=== PATIENT | female | born 1955 | race Caucasian/White ===

== ENCOUNTER 2019-04-10 10:16 | Outpatient (RCR) | payer OTHER, SELFPAY ==
--- NOTE | 2019-04-10 11:59 | PTOPEVAL ---
INITIAL PHYSICAL THERAPY EVALUATION and PLAN OF CARE Thank you for referring Martina to [facility]. Please review, sign, date and return this plan of care CHELALuis Carlos Mack will be seen in PT 1x/wk x 6 weeks. I agree with and certify that the following plan of care is medically necessary. Referring Physician Date Admitting Provider: Attending Provider: PHYSICIAN NOT ON STAFF Referring Provider: *PT Outpatient Evaluation Start: 04/10/19 10:34 Freq: Status: Active Protocol: Document 04/10/19 10:25 MAYITO (Rec: 04/10/19 11:54 MAYITO [email or web address]) Therapy Assessment Status Assessment Status Assessment Status Evaluation Outpatient Past Medical History Neurological History Hx Neurological Disorders No Significant History Cardiovascular History Hx Cardiac Disorders No Significant History Respiratory History Hx Asthma Yes: allergy related Gastrointestinal History Hx Appendectomy Yes Hx Bowel Surgery Yes: abdominal wall reconstruction 2019 Hx Cholecystectomy Yes Hx Gastric Bypass Surgery Yes: 08/15/2017 Hx Hernia Yes Genitourinary History Hx Nephrectomy Yes: L kidney - late 30's - kidney CA Hx Other Genitourinary Disorders Yes: OAB, urge urinary incontinence Musculoskeletal History Hx Back Pain Yes Hx Degenerative Disk Disease Yes Hx Other Musculoskeletal Disorders Yes: neck pain,recent injections for hip bursitis Endocrine History Hx Hypothyroidism Yes HEENT History Hx HEENT Disorders No Significant History Reproductive History Hx Reproductive Disorders No Significant History Other History Hx Cancer Yes: kidney CA - when in her 30's Evaluation Information Problem Diagnosis OAB, urge urinary incontinence Onset years ago, worsened last 5-7 yrs Subjective Information Before medication - unable to Query Text:As Reported By Patient/ delay urination at all. Since Family medication - now can delay urination Before - if waited - just started losing urine - unable to control at all. Will also have difficulty controlling bowels - decreased control - Stool is more liquid in nature due to gastric bypass Spastic colon - especially when nervous. Diagnostic Tests Other Tests F
--- NOTE | 2019-04-24 08:53 | PCPTNOTE ---
Patient called & cancelled scheduled appointment this date due to illness. [ ]
--- NOTE | 2019-05-03 14:19 | PCPTNOTE ---
Patient called & cancelled scheduled appointment this date due to car problems.[ ]
--- NOTE | 2019-05-08 06:58 | PCPTNOTE ---
Patient called & cancelled scheduled appointment this date due to car troubles.[ ]
--- NOTE | 2019-05-23 08:19 | PCPTNOTE ---
PHYSICAL THERAPY DISCHARGE NOTE Admitting Provider: Attending Provider: PHYSICIAN NOT ON STAFF Patient:Martina Mcneil Date of :1955 Martina has not returned for any further treatments since 04/10/2019, which was her initial visit. She was provided with a HEP and urge incontinence education. She will be discharged from physical therapy at this time. Thank you for referring Martina to [facility]. Please review, sign, date and return this discharge summary CHELA. I have been updated about Martina's current status and I agree with discharge from the above service at this time. Referring Physician Date
== END 2019-05-24 09:43 | disposition home or self-care (01) ==
LOC: ANHPT 10:16
DX: N32.81 Overactive bladder (principal); N39.41 Urge incontinence
CPT/HCPCS: 97161

== ENCOUNTER 2025-02-12 14:30 | Outpatient (RCR) | payer MEDICARE, MEDICAID, SELFPAY ==
--- NOTE | 2024-12-14 14:28 | OPREHPOC ---
Outpatient Therapy Plan of Care This is a Multidisciplinary Plan of Care that may contain components documented by all disciplines (PT, OT, and ST.) PT Problem 1 PT Problem #1 Knowledge Deficit PT Goal 1 Goal / Goal Update *independent with HEP Target Visit 10 PT Problem 2 PT Problem #2 Pain PT Goal 1 Goal / Goal Update 1* pt report pain rating of 7/10 at worst 2* pt report with sleeping, awaken every 3 hours due to pain 3* pt report able to tolerate sitting 20 minutes Target Visit 10 PT Problem 3 PT Problem #3 Impaired Flexibility PT Goal 1 Goal / Goal Update increase cervical ROM to improve ability to drive and self care 1* rotation R 60' 2* rotation L 60' pt perform 3 reps without an increase in pain: 3* cervical rotation R 4* cervical rotation L 5* R shoulder flexion 6* R shoulder IR Target Visit 10 PT Problem 4 PT Problem #4 Impaired Strength PT Goal 1 Goal / Goal Update increase cervical thoracic strength, to improve posture and positioning of spine: gross strength of 4/5 Target Visit 10
--- NOTE | 2024-12-14 14:28 | PTOPEVAL1 ---
Assessment and note entered by Marti Veloz, PT Evaluation Information Assessment Status Evaluation ICD-10 Condition Codes (PT) Radiculopathy, thoracolumbar region M54.15,Pain in left shoulder M25.512 Onset about 1 year Subjective Information gradual increase in neck, R shoulder and R upper back back; no imaging done; history of fall with R arm fracture- no treatment for, discovered too late- unable to straighten her elbow, and issues with cervical and thoracic disc R hand dominant pain with sitting is limiting her outings with friend and family activity level: active, artist/draws; light kitchen tasks and self care, otherwise, does all home tasks Reported Pain Level Pain Score Self Report Additional Pain Score Comments pain range in the past week 2-10+/10; aching, sharp; R cervical- thoracic to R shoulder and upper humerus; starting to have some pain in L side too increase pain: sitting 10-15 minutes; walking 10- 15 minutes decrease pain: change position, lie down, arthritis tylenol, is not using heat or ice, instruct on PRN use 10- 15 minutes; report with sleeping, awaken every 2 hours due to pain and change position Assessment PT Clinical Summary Shikha has the diagnosis of R shoulder and thoracic pain. She reports gradual increase in pain and chronic issues with neck, back and shoulder pain. Back index self rating of 62% limitation in activity level. Pain is increased with sitting, walking, driving; sleep is disrupted and does all home tasks. She is R hand dominant and does drawing and art work. Medical history includes: lung cancer, kidney cancer, chronic pain; is currently having work up for increase BP issues with standing. With the evaluation: poor standing posture of neck, shoulder and trunk; pain over R and L cervical, R thoracic, R shoulder to upper humerus/ biceps, with tenderness and spasms. Pain is increased with cervical rotation to R & L, flexion ; all motions of R shoulder. ROM of neck is decreased with rotation and R & L shoulder active ranges are WNL. Skilled PT services are indicated for modalities to decrease pain, therapeutic exercises to increase cervical ROM, and increase strength of cervical/thoracic musculature, to improve posture and positioning, with education for HEP and posture/body mechanics. Plan of Care Interventions Hot Pack/Cold Pack,Manual Therapy,Mechanical Traction,Neuro Re-education,Patient/Caregiver Education,Therapeutic Activities,Therapeutic Exercise,Other Other Interventions taping PT Services Indicated Yes Treatment Frequency and 1-2x/wk for 10 visits Duration These treatments will address the objective and functional deficits as defined above. The patient will be advanced safely and appropriately in order for the patient to progress towards his/her prior level of function. Additional exercises will be introduced and as well as a comprehensive home exercise program upon discharge, if needed, ?to ensure carryover of functional gains achieved in the clinic. This treatment plan has been reviewed and agreement upon by the patient.
--- NOTE | 2024-12-27 08:22 | PCPTNOTE ---
Addendum for 12-17-24 visit. S: Patient reports 4/10 pain on ascending pain scale. Pt reports she has not done HEP everyday. O: Review of HEP: Cervical rotations, lateral bending, flexion extension for 10 x 5 sec holds ea direction UT Stretches 3 x 15 sec shoulder shrugs x 15 scap squeezes x 10 for 5 sec holds Chin tucks x 10 for 5 sec holds posterior shoulder rolls x 15 Pt educated on shoulder and cervical anatomy and relation to pain. Pt also educated on pain relieving measures for home. Manual therapy: STM to UT and levator with gentle pressure and bilateral UT, levator scapulae and rhomboids and cervical ROM A: Pt tolerated STM fair today, frequent feedback regarding pressure. Pt needed cueing for posture and mechanics for chin tucks and alignment for cervical ROM. P: Cont to progress per pt tolerance. Focus on decreasing pain and improving pain free movement. 1 unit Therapeutic Activity for 20 min 1 unit Therapeutic Exercises for 20 min 1 unit Manual for 10 min
--- NOTE | 2025-02-12 15:19 | OPREHPOC ---
Outpatient Therapy Plan of Care This is a Multidisciplinary Plan of Care that may contain components documented by all disciplines (PT, OT, and ST.) PT Problem 1 PT Problem #1 Knowledge Deficit PT Goal 1 Goal / Goal Update *independent with HEP 02-12-25: d/c goal met Target Visit 10 Progress Met PT Problem 2 PT Problem #2 Pain PT Goal 1 Goal / Goal Update 1* pt report pain rating of 7/10 at worst 2* pt report with sleeping, awaken every 3 hours due to pain 3* pt report able to tolerate sitting 20 minutes 02-12-25: d/c goals not met: #1 10+/10; #2 2 hours; #3 15 minutes Target Visit 10 PT Problem 3 PT Problem #3 Impaired Flexibility PT Goal 1 Goal / Goal Update increase cervical ROM to improve ability to drive and self care 1* rotation R 60' 2* rotation L 60' pt perform 3 reps without an increase in pain: 3* cervical rotation R 4* cervical rotation L 5* R shoulder flexion 6* R shoulder IR 02-12-25: d/c goals not met: #1 50'; #2 40'; #3, 4,5,6 all increase pain Target Visit 10 Progress Not Met PT Problem 4 PT Problem #4 Impaired Strength PT Goal 1 Goal / Goal Update increase cervical thoracic strength, to improve posture and positioning of spine: gross strength of 4/5 02-12-25: d/c goal not met: Target Visit 10 Progress Not Met
--- NOTE | 2025-02-12 15:19 | PTOPDC ---
Assessment and note entered by Marti Veloz, PT Assessment Status Progress ICD-10 Condition Codes (PT) Radiculopathy, thoracolumbar region M54.15,Pain in left shoulder M25.512 Onset about 1 year Subjective Information feel like I am about the same; exercises made me hurt more; after a treatment, hurt for 4-5 more days afterwards; have been doing some painting; want to follow up with dr again; Reported Pain Level Pain Score 6: Self Report Additional Pain Score Comments pain range in the past week 5-10+/10; center of spine, up into neck and down R arm to above elbow- most of the time increase pain: therapy exercises, home cleaning and using arms decrease pain: sit, lie down, massage take tylenol arthritis med, but do not think it helps pt reports: with sleeping wake up every 2 hours, sitting, depends upon type of chair, generally 15 minutes Assessment PT Clinical Summary Shikha has received 9 PT sessions. Today's assessment, Compared to the initial evaluation: pain rating from 2-10+/10 to 5-10+/10 ; reported sleeping tolerance of awakening every 2 hours and sitting tolerance of 15 minutes- both are the same; ROM with cervical rotation R and L are the same, with pain increase and R shoulder flexion and rotation L increase pain; self assessment with back index rating from 62 to 58% limitation in activity level; education for posture and HEP. The goals were not achieved, except education for HEP and body mechanics. She continues to have high pain ratings with decreased ROM and painful motions of neck and R shoulder. Discharge PT. She is to call her dr for a follow up appointment. Plan of Care PT Services Indicated No
== END 2025-02-13 09:40 | disposition home or self-care (01) ==
LOC: ANHPT 14:30
DX: M54.6 Pain in thoracic spine (principal); M25.511 Pain in right shoulder
CPT/HCPCS: 97014; 97110; 97140; 97162; 97530; G0283